=== PATIENT | male | born 1960 | race Caucasian/White ===

== ENCOUNTER → 2019-06-13 | Outpatient (CLI) | payer BC ==
--- NOTE | 2019-06-13 18:25 | REP ---
Clinical: Trauma. Technique: Three views of the right scapula. Findings: Scapula appears intact. Acromioclavicular and glenohumeral joints appear relatively normal for age. Subtle nondisplaced rib injury cannot be excluded. Impression: Cannot exclude subtle rib injury. Otherwise relatively normal appearance to the scapula and right shoulder. Electronically Signed by Troy Jimenez MD 06/13/2019 06:17 P
== END ==
LOC: M ADAMS 15:24
PROVIDERS: ATTEND Physician Assistant Medical
DX: S40.011A Contusion of right shoulder, initial encounter (principal)